=== PATIENT | female | born 1955 | race Caucasian/White ===

== ENCOUNTER → 2017-07-05 | Outpatient (CLI) | payer OTHER ==
[~2017-07-05] MED LIST: LEVOTHYROXINE50 MCG PO; LEVOTHYROXINE75 MCG PO; SYNTHROID75 MCG
== END | disposition home or self-care (01) ==
LOC: PPHC 12:10
DX: I10 Essential (primary) hypertension (principal)

== ENCOUNTER 2018-05-02 08:53 | Emergency (ER) | payer OTHER ==
[~2018-05-02] VITALS: Ht 149.9 cm; Wt 69.9 kg
[2018-05-02] MEDS ORDERED: SYNTHROID75 MCG PO (08:59)
[2018-05-02] MEDS ORDERED: TUSSIONEX PENN115 ML PO (10:50)
== END 2018-05-02 11:01 | disposition home or self-care (01) ==
LOC: ER 08:53
DX: J20.9 Acute bronchitis, unspecified (principal)

== ENCOUNTER 2018-12-15 08:32 | Emergency (ER) | payer OTHER ==
[~2018-12-15] VITALS: Ht 149.9 cm; Wt 72.6 kg
[~2018-12-15 08:32] MED LIST changes: +SYNTHROID75 MCG PO; +TUSSIONEX PENN115 ML PO
[2018-12-15] MEDS ORDERED: KETOROLAC TROME10 MG PO (11:19)
== END 2018-12-15 12:07 | disposition home or self-care (01) ==
LOC: ER 08:32
DX: M25.511 Pain in right shoulder (principal); F41.8 Other specified anxiety disorders

== ENCOUNTER 2019-06-16 11:15 | Outpatient (CLI) | payer OTHER ==
[~2019-06-16 11:15] MED LIST changes: +KETOROLAC TROME10 MG PO
== END 2019-06-16 11:39 | disposition home or self-care (01) ==
LOC: NUCLEAR 11:15
DX: M81.0 Age-related osteoporosis without current pathological fracture (principal)

== ENCOUNTER 2022-08-23 06:31 | Emergency (ER) | payer OTHER ==
[~2022-08-23] VITALS: Ht 149.9 cm; Wt 68.0 kg
[2022-08-23] MEDS ORDERED: SYNTHROID50 MCG PO (06:43)
== END 2022-08-23 10:22 | disposition home or self-care (01) ==
LOC: ER 06:31
DX: B34.9 Viral infection, unspecified (principal); Z20.822 Contact with and (suspected) exposure to COVID-19; Z91.013 Allergy to seafood